=== PATIENT | female | born 1990 | race Caucasian/White ===

== ENCOUNTER 2017-08-04 10:13 | Observation (INO) | payer OTHER ==
[2017-08-04] MEDS ORDERED: TERBUTALINE SULFATE 1 MG/ML VIAL ONE (12:17)
[2017-08-04] MEDS ORDERED: TERBUTALINE SULFATE 1 MG/ML VIAL SC ONE (12:30)
--- NOTE | 2017-08-04 12:38 | PREANESOB ---
Obstetric Pre-Anesthesia Info - General Info Proposed Procedure: external cephalic version/anesthesia standby : 1 Para: 0 - Labor Status Cervical Dilation per last OB SVE: 0 (n/a) Labor Epidural: No Anesthesia ROS: negative Allergies/Adverse Reactions: Allergy/AdvReac Type Severity Reaction Status Date / Time penicillin G Allergy Hives Verified 08/04/17 11:05 Sulfa (Sulfonamide Allergy Hives Verified 08/04/17 11:06 Antibiotics) CEFZIL Allergy Hives Uncoded 08/04/17 11:07 Home Medications: Medication Instructions Recorded Vit27&Calcium/Iron/FA 1 each PO DAILY 08/04/17 [ Rx 1 Tablet (RX)] Visit Medications: Discontinued Medications Generic Name Dose Route Start Last Admin Trade Name Andres PRN Reason Stop Dose Admin Terbutaline Sulfate Confirm 08/04/17 12:17 Brethine Administered 08/04/17 12:18 Dose 1 mg .ROUTE .STK-MED ONE Terbutaline Sulfate 0.25 mg 08/04/17 12:30 Brethine SC 08/04/17 12:31 ONCE ONE - Anesthesia History Response to Local Anesthetics: Normal Anesthesia & Operative History: No Prior Problems Family Anesthesia History: Negative - Social History Substance Use/Abuse: Denies - Focused Exam Latest Vital Signs (Nursing): reivewed and in [facility] [place] Height/Weight (Nursing): Height 157.48 cm Weight 87.997 kg Respiratory: lungs clear Cardiovascular: regular rate, rhythm ASA Status: II - Plan Anesthetic Plan: standby, SAB vs GA if emergency needed Consent Signed and on Chart: Yes Patient/Guardian Understands and Agrees to Plan: Yes General Comments: r/b/a explained and patient agrees to proceed
[2017-08-04 13:10] VITALS: BP 128/75; PULSE 94
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
== END 2017-08-04 14:55 | disposition home or self-care (01) ==
LOC: FLD 10:13 → INTOOBSV 10:13
PROVIDERS: ADMIT Obstetrics & Gynecology; ATTEND Obstetrics & Gynecology
DX: O32.1XX0 Maternal care for breech presentation, not applicable or unspecified (principal); O24.419 Gestational diabetes mellitus in pregnancy, unspecified control; Z3A.37 37 weeks gestation of pregnancy; Z53.9 Procedure and treatment not carried out, unspecified reason
CPT/HCPCS: J3105

== ENCOUNTER 2017-08-23 09:05 | Inpatient (IN) | payer OTHER ==
[2017-08-23] MEDS ORDERED: LR 500 ML IV ONE (09:21)
[2017-08-23] MEDS ORDERED: CLINDAMYCIN 900 MG/DEXTROSE 50 ML IV ONE (09:23)
[2017-08-23] MEDS ORDERED: GENTAMICIN SULFATE IV SCH (09:30)
[2017-08-23] MEDS ORDERED: GENTAMICIN PHARMACY TO DOSE MISC SCH (09:30)
[2017-08-23] MEDS ORDERED: LR 1,000 ML IV SCH (09:30)
[2017-08-23] MEDS ORDERED: D5W IV SCH (09:30)
[2017-08-23] MEDS ORDERED: TERBUTALINE SULFATE 1 MG/ML VIAL IV PRN (09:39)
[2017-08-23] MEDS ORDERED: OLIVE OIL 118 ML BTL MISC PRN (09:39)
[2017-08-23] MEDS ORDERED: EPSOM SALT 454 GM TP PRN (09:39)
[2017-08-23] MEDS ORDERED: LR 1,000 ML IV PRN (09:39)
[2017-08-23] MEDS ORDERED: OXYTOCIN/RINGERS LACTATE 1,000 ML IV PRN (09:39)
[2017-08-23] MEDS ORDERED: IBUPROFEN 600 MG TAB PO PRN (09:39)
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
[2017-08-23] MEDS ORDERED: OXYTOCIN 10 UNIT/ML VIAL ONE (09:41)
[2017-08-23] MEDS ORDERED: TERBUTALINE SULFATE 1 MG/ML VIAL ONE (09:41)
[2017-08-23] MEDS ORDERED: AMMONIA AROMATIC 1 EACH AMP IH ONE (09:41)
[2017-08-23] MEDS ORDERED: MISOPROSTOL 200 MCG TAB ONE (09:41)
[2017-08-23] MEDS ORDERED: OXYTOCIN 20 UNIT in LR 1,000 ML IV PRN (09:43)
[2017-08-23] MEDS ORDERED: D5W IV ONE ×2 (09:45→10:00)
[2017-08-23] MEDS ORDERED: GENTAMICIN SULFATE IV ONE ×2 (09:45→10:00)
--- NOTE | 2017-08-23 09:47 | PDANEPAE ---
ANE History of Present Illness 26 yo for csx, breech ANE Past Medical History - Pulmonary History Hx Sleep Apnea: No - Chronic Pain History Chronic Pain: No ANE Review of Systems Review of Systems: - Exercise capacity METS (RN): 4 METS ANE Patient History - Allergies Allergies/Adverse Reactions: penicillin G Allergy (Verified 08/04/17 11:05) Hives Sulfa (Sulfonamide Antibiotics) Allergy (Verified 08/04/17 11:06) Hives CEFZIL Allergy (Uncoded 08/04/17 11:07) Hives - Home Medications Home medications: home medication list seen and reviewed Home Medications: Vit27&Calcium/Iron/FA [ Rx 1 Tablet (RX)] 1 each PO DAILY 08/04 [Last Taken 07/31/17] - Anes Hx Anes Hx: no prior problems - Smoking Hx Smoking Status: Light smoker ANE Physical Exam - Airway Neck exam: FROM Mallampati Score: Class 2 Mouth exam: normal dental/mouth exam - Pulmonary Pulmonary: no respiratory distress - Cardiovascular Cardiovascular: regular rate and rhythym - ASA Status ASA Status: II ANE Anesthesia Plan Anesthesia Plan: spinal
[2017-08-23 10:18] LABS: % IMMATURE GRANULYOCYTES 0.7 % (0.0-1.1); ABSOLUTE IMMATURE GRANULOCYTES 0.13 10^3/uL (0.00-0.10); ADD DIFF? NO; ADD MORPH? NO; ADD SCAN? NO; ATYPICAL LYMPHOCYTE FLAG 0 (0-99); FRAGMENT RBC FLAG 0 (0-99); HEMATOCRIT 36.7 % (38.0-47.0); HEMOGLOBIN 12.2 g/dL (12.6-16.3); LEFT SHIFT FLG 0 (0-99); LIPEMIA HEMOLYSIS FLAG 80 (0-99); MEAN CELL HEMOGLOBIN 27.2 pg (27.9-34.1); MEAN CELL HEMOGLOBIN CONCENTR. 33.2 g/dL (32.4-36.7); MEAN CELL VOLUME 81.9 fL (81.5-99.8); MEAN PLATELET VOLUME 11.1 fL (8.7-11.7); PLATELET CLUMPS FLAG 0 (0-99); PLATELET COUNT 347 10^3/uL (150-400); RED BLOOD CELL COUNT 4.48 10^6/uL (4.18-5.33); RED CELL DISTRIBUTION WIDTH 15.4 % (11.5-15.2)
[2017-08-23] MEDS ORDERED: ONDANSETRON 4 MG/2 ML VIAL IVP PRN (10:44)
[2017-08-23] MEDS ORDERED: fentaNYL 100 MCG/2 ML INJ IVP PRN (10:44)
[2017-08-23] MEDS ORDERED: MEPERIDINE 25 MG/ML SYR IVP PRN (10:44)
[2017-08-23] MEDS ORDERED: NALOXONE HCL 0.4 MG/ML INJ IVP PRN (10:44)
--- NOTE | 2017-08-23 11:27 | POSTANESTH ---
Post Anesthetic Evaluation Cardiovascular Status: Normal, Stable Respiratory Status: Normal, Stable Level of Consciousness/Mental Status: Can Participate in Eval Pain Control: Adequate, Prn Tx Ordered Nausea/Vomiting Control: Adequate, Prn Tx Ordered
[2017-08-23] MEDS ORDERED: OXYCODONE/APAP 5/325 TAB PO PRN (11:29)
[2017-08-23] MEDS ORDERED: SIMETHICONE 80 MG TAB CHEW PO PRN (11:29)
[2017-08-23] MEDS ORDERED: PROMETHAZINE HCL 25 MG/ML INJ IVP PRN (11:29)
[2017-08-23] MEDS ORDERED: ACETAMINOPHEN 325 MG TAB PO PRN (11:29)
[2017-08-23] MEDS ORDERED: OXYTOCIN/RINGERS LACTATE 1,000 ML IV SCH (11:30)
--- NOTE | 2017-08-23 11:36 | POSTOPPROG ---
Post Op Note Date of Operation: 08/23/17 Surgeon: Derek Page Photography Instructor: Kelsi Waggoner Anesthesiologist: Albert Ocasio Pre-op Diagnosis: 40+ weeks gestation, labor, breech Post-op Diagnosis: Same Indication: 40+ weeks gestation, labor, breech Procedure: Primary Delivery Findings: Viable Female Inf/Abcess present in the surg proc area at time of surgery?: No Depth: Organ Space EBL: 500-1000 Complications: None
--- NOTE | 2017-08-23 11:53 | SUROPNOTE ---
[facility] Operative Report - Surgery OPERATIVE REPORT DATE OF OPERATION: 08/23/17 SURGEON: Hank Page MD UNEMPLOYMENT INSURANCE DIRECTOR: SANDRO Stewart ANESTHESIA: Spinal ANESTHESIOLOGIST: Albert Ocasio PREOPERATIVE DIAGNOSES: 1. IUP @ 40.4 weeks gestation. 2. Breech presentation, s/p failed ECV attempt. 3. Active labor, 6 cm cervical dilation. 4. Meconium-stained Amniotic Fluid. POSTOPERATIVE DIAGNOSES: 1. IUP @ 40.4 weeks gestation. 2. Breech presentation, s/p failed ECV attempt. 3. Active labor. 4. Meconium-stained Amniotic Fluid. PROCEDURE PERFORMED: Primary Delivery FINDINGS: 1. Noe Breech Presentation. 2. Viable Female Infant, Apgars 8 @ 1 minute, 9 @ 5 minutes. 3. Normal intrauterine cavity, normal uterus, tubes and ovaries. SPECIMENS: None. EBL: 800 mL INDICATIONS: 26 yo @ 40.4 weeks gestation presented to L&D in active labor with known breech presentation fetus. Patient had undergone prior unsuccessful external cephalic version and was planning on elective breech vaginal delivery with Dr. Smiley @ [facility]. Dr. Smiley was not solar installation manager this weekend, so when patient developed labor she came to [facility]. After confirming breech presentation on digital/cervical exam (where she was found to be ruptured and 6 cm dilated)/Misael's and with bedside sonogram and discussing risks, benefits, and alternatives to Primary Delivery for breech presentation, patient consented (verbal and written) to delivery. Preparations were made for immediate delivery. DESCRIPTION OF PROCEDURE: After appropriate consent was obtained patient was taken to OR. Epidural anesthesia was redosed and found to be adequate. Clindamycin 900 mg IV and Gentamicin 5/mg/kg IV were administered for surgical prophylaxis. Patient was prepped and draped according to usual sterile fashion. Time out was performed. A Pfannenstiel skin incision was performed with scalpel and subcutaneous tissue was incised down to rectus abdominis fascia. Fascia was nicked in midline and incision extended bilaterally with curved Green scissors. Rectus muscles were incised off inferior and superior fascial segments and then in midline. Peritoneal cavity was entered bluntly. Bladder blade was placed to retract bladder from lower uterine segment. Bladder flap was created with Metzenbaum scissors and pick-ups. Bladder blade replaced to reflect bladder flap. Transverse lower uterine incision was made with scalpel. was delivered breech through hysterotomy: feet were first grabbed and gently pulled through hysterotomy, body was grasped and held gently and firmly with the help of a moist towel wrapped around body, arms were swept across ventral side of fetus and both delivered through hysterotomy without difficulty, head delivered spontaneously after delivery of arms, with slight flexion of neck and gentle fundal pressure from licensed occupational therapy assistant. was place on operative field. Cord was clamped and cut and infant was handed to resuscitation team. Cord blood was obtained. Placenta was manually extracted from intrauterine cavity and cavity was curetted with dry lap sponge after uterus was exteriorized. Hysterotomy was reapproximated with two 0 vicryl stitches; the first running and locking and the second a running, imbricating stitch. Gutters were cleared of debris. Uterus was placed back into anatomic position. Thorough inspection of endometrial cavity revealed no anatomic anomalies. Exam of pelvis and peritoneal cavity revealed normal tubes and ovaries and no additional bleeding from hysterotomy or other sites. Good hemostasis noted. Fascial incision was reapproximated with a single running 0-vicryl suture. Subcutaneous adipose tissue was approximated with 2-0 chromic suture. Skin was closed with a subcuticular 4-0 monocryl stitch, steri-strips and bandaged appropriately. At the end of procedure sponge, lap and needle count was correct x 2. Patient tolerated procedure well and she was taken to PACU awake and in stable condition.
[2017-08-23] MEDS: KETOROLAC 30 MG/1 ML SDV IVP PRN ×2 (17:05→23:10)
[2017-08-23] MEDS: DOCUSATE SODIUM 100 MG CAP PO PRN (23:10)
[2017-08-24] MEDS: KETOROLAC 30 MG/1 ML SDV IVP PRN (05:10)
[2017-08-24] MEDS: DOCUSATE SODIUM 100 MG CAP PO PRN ×2 (09:06→20:51)
[2017-08-24] MEDS: HYDROCODONE/APAP 5/325 TAB PO PRN ×2 (09:07→22:50)
--- NOTE | 2017-08-24 09:16 | OBPP ---
Progress Note Assessment/Plan: Assessment: 1) s/p PCS secondary to breech, active labor POD # 1 - pt is stable 2) Anemia - pt is asymptomatic Plan: Continue routine pp care Encourage ambulation To remove dressing this am, pt may then shower Start po meds as ordered Will start iron BID Plan for d/c home in 24-48 hrs 08/24/17 09:13 Subjective/ Course: 08/24/17 09:14 Pt seen and examined. Doing well with no complaints. Pain is well controlled. Pt is OOB, jose regular diet, voiding and passing flatus. No BM yet. Denies any f /c/n/v/CP or SOB. Mod lochia. BF well so far. Denies any dizziness when up OOB. Objective: 08/24/17 06:30 Patient ABO/Rh A POSITIVE 08/23/17 10:00 Temp Pulse Resp BP Pulse Ox 37.2 C 93 16 119/74 90 L 08/24/17 05:10 08/24/17 05:10 08/24/17 05:10 08/24/17 05:10 08/24/17 05:10 Uterine Position/Fundal Height: Umbilicus -2 Uterine Tone: Firm Physical Exam - Physical Exam Respiratory: lungs clear, normal breath sounds Cardiac/Chest: regular rate, rhythm Abdomen: normal bowel sounds, non-tender, soft, flatus (+), incision (C/D/I with dressing in place), dressing (C/D/I) Extremities: non-tender, normal inspection Skin: normal color, warm/dry Neuro/Psych: alert, normal mood/affect, oriented x 3
[2017-08-24] MEDS: IRON POLYSAC/IRON HEME 28 MG TAB PO SCH ×2 (11:58→20:51)
[2017-08-24] MEDS: IBUPROFEN 600 MG TAB PO PRN ×2 (11:59→18:17)
[2017-08-25] MEDS: IBUPROFEN 600 MG TAB PO PRN ×4 (00:30→22:27)
[2017-08-25] MEDS: HYDROCODONE/APAP 5/325 TAB PO PRN ×2 (03:41→12:08)
[2017-08-25] MEDS: DOCUSATE SODIUM 100 MG CAP PO PRN (08:10)
[2017-08-25] MEDS: IRON POLYSAC/IRON HEME 28 MG TAB PO SCH ×2 (08:10→22:27)
--- NOTE | 2017-08-25 10:02 | OBPP ---
Progress Note Assessment/Plan: Assessment: well nipples intact/sore tender pain well managed ff@u scant rubra lochia able to move around without difficulty + passing gas + voiding incision approximated ss applied Plan:discharge to home with instructions fu 2 weeks 4 and 6 weeks , pericare, infection, bleeding pattern, rest, pain management, exercise, pelvic rest, depression, no driving x 2 weeks, verbalized understanding of all disussedc 08/25/17 09:58 Subjective/ Course: 08/24/17 09:14 Pt seen and examined. Doing well with no complaints. Pain is well controlled. Pt is OOB, jose regular diet, voiding and passing flatus. No BM yet. Denies any f /c/n/v/CP or SOB. Mod lochia. BF well so far. Denies any dizziness when up OOB. 08/25/17 09:57 Doing well denies difficulties, pain well managed, ready to go home today. Ambulating without difficulties. + passing gas, able to void without difficulties. Objective: 08/24/17 06:30 Patient ABO/Rh A POSITIVE 08/23/17 10:00 Temp Pulse Resp BP Pulse Ox 36.7 C 99 18 124/75 H 96 08/24/17 20:00 08/24/17 20:00 08/24/17 20:00 08/24/17 20:00 08/24/17 20:00 Uterine Position/Fundal Height: At Umbilicus Uterine Tone: Firm Physical Exam - Physical Exam General Appearance: WD/WN, alert, no apparent distress Respiratory: chest non-tender, lungs clear, normal breath sounds Cardiac/Chest: regular rate, rhythm Abdomen: normal bowel sounds, incision (approximated no ss of infection) Extremities: normal range of motion, Mago's sign (negative bilaterally) DTR- Lower Extremities: Knee (R): 1+, Knee (L): 1+ Skin: normal color, warm/dry Neuro/Psych: no motor/sensory deficits, alert, normal mood/affect, oriented x 3
[2017-08-25] MEDS ORDERED: LACTULOSE 20 GM/30 ML UDCUP PO PRN (10:05)
[2017-08-25] MEDS ORDERED: POLYETHYLENE GLYCOL 3350 17 GM PKT PO PRN (10:05)
[2017-08-25] MEDS ORDERED: BISACODYL 10 MG SUPP PR PRN (10:05)
[2017-08-26] MEDS: IBUPROFEN 600 MG TAB PO PRN ×2 (06:25→12:19)
[2017-08-26] MEDS: DOCUSATE SODIUM 100 MG CAP PO PRN (09:16)
[2017-08-26] MEDS: IRON POLYSAC/IRON HEME 28 MG TAB PO SCH (09:16)
[2017-08-26] MEDS: HYDROCODONE/APAP 5/325 TAB PO PRN (09:22)
--- NOTE | 2017-08-26 13:41 | PDDCSUM ---
Discharge Summary Discharge Summary: S) Pt doing well, no complaints; desires d/c home today; FOB supportive and at BS O) VSS Exam: HEENT: normocephalic, atraumatic Heart: RRR, no murmur Chest: CTA-B Abd: soft, nontender, nondistended incision: C/D/I, steri strips applied Uterus: firm @ U-1 lochia: min rubra extremities: trace edema, negative sabino's sign A) [id number] s/p primary C/S POD #3 anemia P) d/c home today cont OTC iron pelvic rest x 6 weeks no heavy lifting RTO in 1-2 weeks discussed S&S of infection- aware to call with any symptoms
[2017-08-26 18:02] VITALS: BP 121/80; PULSE 78; RESP 18; TEMP 99.2; O2SAT 96
== END 2017-08-26 14:00 | disposition home or self-care (01) | DRG 766 ==
LOC: FLD 09:05 → FOB 13:41
PROVIDERS: ADMIT Obstetrics & Gynecology Gynecology; ATTEND Obstetrics & Gynecology Gynecology
PROC: 10D00Z1 Extraction of Products of Conception, Low, Open Approach (ICD-10-PCS; principal; 2017-08-23)
DX: O32.1XX0 Maternal care for breech presentation, not applicable or unspecified (principal); Z37.0 Single live birth; Z3A.40 40 weeks gestation of pregnancy; O24.419 Gestational diabetes mellitus in pregnancy, unspecified control
CPT/HCPCS: J1885; J2550; J3105